=== PATIENT | male | born 1980 | race Two or more races ===

== ENCOUNTER 2020-10-29 11:50 | Emergency (ER) | payer OTHER ==
[~2020-10-29] VITALS: Ht 175.3 cm; Wt 88.9 kg
[2020-10-29] MEDS ORDERED: PROAIR HFA8.5 GM (12:21)
[2020-10-29] MEDS ORDERED: ONDANSETRON ODT4 MG SL (16:13)
[2020-10-29] MEDS ORDERED: DECADRON6 MG PO (16:13)
[2020-10-29] MEDS ORDERED: PEPCID AC20 MG PO (16:13)
[2020-10-29] MEDS ORDERED: PROAIR HFA8.5 GM IH (16:13)
== END 2020-10-29 17:30 ==
LOC: ER 11:50
DX: U07.1 COVID-19 (principal); R06.02 Shortness of breath